=== PATIENT | female | born 1950 | race Caucasian/White ===

== ENCOUNTER → 2017-12-14 11:08 | Outpatient (CLI) | payer MEDICARE, SELFPAY ==
--- NOTE | 2017-12-14 11:12 | XR_ITS ---
XR ankle RT min 3V HISTORY: ITS.REASON: Right ankle pain ORDERING PHYSICIAN: SHARMIN Santacruz PATIENT AGE: 67 years COMPARISON: 09/18/2015 FINDINGS: There are osteoarthritic changes of the ankle joint with decrease in the joint space anteriorly. There is mild anterior subluxation of the talus. Bony hypertrophic changes are present at the medial malleolus and the lateral malleolus region. Small calcaneal spur. IMPRESSION: Osteoarthritic changes of the ankle joint as described above
== END ==
PROVIDERS: PCP Physician Assistant; Visit Provider Physician Assistant
DX: M25.571 Pain in right ankle and joints of right foot (principal)
CPT/HCPCS: 73610

== ENCOUNTER → 2020-04-09 12:37 | Outpatient (CLI) | payer MEDICARE, MEDICAID, SELFPAY ==
[2020-04-09 14:31] LABS: Coronavirus 19 IgG Antibody Negative (Negative); Coronavirus 19 IgM Antibody Negative (Negative)
== END ==
PROVIDERS: Visit Provider Surgery
DX: Z03.818 Encounter for observation for suspected exposure to other biological agents ruled out (principal)
CPT/HCPCS: 36415; 86328

== ENCOUNTER 2020-04-10 06:20 | Day surgery (SDC) | payer MEDICARE, MEDICAID, SELFPAY ==
[2020-04-08 11:04] VITALS: BMI 34.6
[2020-04-10 06:53] VITALS: BP 140/83; PULSE 72; RESP 18; TEMP 36.6; O2SAT 95
[2020-04-10 07:52] VITALS: BP 137/73; PULSE 67; RESP 18; TEMP 37.1; O2SAT 96
--- NOTE | 2020-04-10 07:59 | HMH.OPNOTE ---
Date of procedure: 04/10/20 Pre-op Diagnosis:: Neoplasm of uncertain behavior (2 cm)?left upper back Post-op Diagnosis:: Same Procedure performed:: Excision of 2 cm skin lesion from left upper back Surgeon:: Mello Gore MD Anesthesia: local Estimated blood loss (mL): 10 Operative findings:: Skin lesion was excised with 1 mm margin Lesion margins were marked with Prolene suture for identification (short superior/long lateral) Operative note:: After informed consent was obtained the patient was taken to the procedure room and maintained in a seated position. Her left upper back was prepped and draped in a sterile fashion. After infiltration local anesthetic an elliptical incision was made around the lesion. The deep subcutaneous tissue was dissected with scalpel and electrocautery. The lesion was excised in toto and passed off for pathologic evaluation after being marked for margin utilizing Prolene suture (short superior/long lateral). Electrocautery was utilized to achieve hemostasis and skin was then closed with interrupted 4-0 nylon. Dressings were applied and the patient was transferred to recovery. Condition: stable Disposition: no change Specimens:: Left upper back skin lesion Complications:: No immediate
[2020-04-10 08:02] VITALS: BP 137/73; PULSE 67; RESP 18; TEMP 37.2; O2SAT 96
== END 2020-04-10 08:02 | disposition home or self-care (01) ==
LOC: OUTP 06:23
PROVIDERS: PCP Physician Assistant; Visit Provider Surgery
PROC: (CPT 11106; principal; 2020-04-10 07:30)
DX: L82.1 Other seborrheic keratosis
CPT/HCPCS: 11106; 88305

== ENCOUNTER → 2020-08-18 18:20 | Outpatient (CLI) | payer MEDICARE, MEDICAID, SELFPAY ==
[2020-08-18 19:03] LABS: Basophils % 0.5 % (0.1-2.0); Eosinophils # 0.1 K/mm3 (0.0-0.4); Eosinophils % 1.3 % (0.1-12.0); Hematocrit 45.9 % (37.0-47.0); Hemoglobin 14.8 g/dL (12.2-16.2); Lymphocytes # 2.1 K/mm3 (0.7-4.5); Lymphocytes % 24.6 % (10-50); Mean Corpuscular HGB Conc 32.3 g/dL (31.8-35.4); Mean Corpuscular Hemoglobin 31.2 pg (27.0-31.2); Mean Corpuscular Volume 96.5 fl (81-99); Monocytes # 0.4 K/mm3 (0.1-1.0); Monocytes % 4.6 % (1.7-9.3); Neutrophils # 5.8 K/mm3 (1.8-7.8); Platelet Count 340 K/mm3 (142-424); Red Blood Count 4.76 M/mm3 (4.20-5.40); Red Cell Distribution Width 14.4 % (11.5-17.5); White Blood Count 8.3 K/mm3 (4.8-10.8)
[2020-08-18 19:09] LABS: Alanine Aminotransferase 27 U/L (12-78); Albumin Level 4.5 g/dl (3.5-5.0); Albumin/Globulin Ratio 1.3 (1.1-1.8); Alkaline Phosphatase 106 U/L (38-126); Anion Gap 14.9 mEq/L (5-15); Aspartate Amino Transferase 36 U/L (14-36); Bilirubin,Total 0.5 mg/dl (0.2-1.3); Blood Urea Nitrogen 17 mg/dl (7-17); Calcium 9.9 mg/dl (8.4-10.2); Carbon Dioxide 26 mmol/L (22.0-30.0); Chloride 101 mmol/L (98-107); Chol/HDL Ratio 5.5 (1-3.5); Cholesterol 294 mg/dl (140-200); Estimated Glomerular Filt Rate 71 ml/min (>60); GFR (African American) 86 ML/MIN (>60); Globulin 3.5 g/dL (1.3-3.2); Glucose 164 mg/dl (74-100); HDL Cholesterol 53 mg/dl (40-60); Potassium 3.9 mmoL/L (3.5-5.1); Sodium 138 mmol/L (136-145); Triglycerides 284 mg/dl (30-150); VLDL Cholesterol 57 mg/dL (0-40)
[2020-08-18 19:21] LABS: Direct LDL Cholesterol 191.62 mg/dL (100-129)
[2020-08-18 19:27] LABS: T4 (Thyroxine) 7.4 ug/dl (5.53-11.0)
[2020-08-18 19:40] LABS: Thyroid Stimulating Hormone 3.13 uIU/mL (0.465-4.68)
[2020-08-18 19:58] LABS: Vitamin B12 366 pg/mL (239-931)
== END ==
PROVIDERS: Visit Provider Physician Assistant
DX: R53.83 Other fatigue (principal); E78.00 Pure hypercholesterolemia, unspecified; E55.9 Vitamin D deficiency, unspecified; R32 Unspecified urinary incontinence
CPT/HCPCS: 80053; 80061; 82306; 82607; 84436; 84443; 85025

== ENCOUNTER → 2020-09-10 13:08 | Outpatient (CLI) | payer MEDICARE, MEDICAID, SELFPAY ==
--- NOTE | 2020-09-10 13:09 | XR_ITS ---
PROCEDURE: XR DEXA AXIAL SKELETON CLINICAL HISTORY: Osteoporosis screening COMPARISON: No exams were available for comparison FINDINGS: The right hip BMD is 0.624 with a T-score of -2.0. The left hip BMD is with a T-score of . The lumbar spine BMD is with a T-score of . IMPRESSION: Based on these results a follow-up exam is recommended in year. Dictated by: Yousif Monzon MD 09/10/2020 15:14 Yousif Monzon MD in [place] 09/10/2020 17:39
== END ==
PROVIDERS: PCP Physician Assistant; Visit Provider Physician Assistant
DX: Z13.820 Encounter for screening for osteoporosis (principal); Z78.0 Asymptomatic menopausal state
CPT/HCPCS: 77080

== ENCOUNTER → 2021-12-10 13:10 | Outpatient (CLI) | payer MEDICARE, MEDICAID, SELFPAY ==
--- NOTE | 2021-12-10 13:15 | XR_ITS ---
FINAL REPORT CLINICAL HISTORY: knee pain FINDINGS: RIGHT KNEE Three views were obtained. There is no acute fracture or dislocation. There is moderate degenerative change, worse in the medial and patellofemoral compartments. No soft tissue abnormality is identified. IMPRESSION: Degenerative changes as above. Reviewed, Interpreted and Dictated by Tejinder Barksdale III, MD Transcribed by Aida Garcia Authenticated by Tejinder Barksdale III, MD on 12/10/2021 03:48:30 PM [facility]
--- NOTE | 2021-12-10 13:15 | XR_ITS ---
FINAL REPORT CLINICAL HISTORY: knee pain FINDINGS: LEFT KNEE Three views were obtained. There is no acute fracture or dislocation. There are moderate and severe degenerative changes, worse in the medial compartment. There is a small joint effusion. No soft tissue abnormality is identified. IMPRESSION: Degenerative changes as above. Small joint effusion. Reviewed, Interpreted and Dictated by Tejinder Barksdale III, MD Transcribed by Aida Garcia Authenticated by Tejinder Barksdale III, MD on 12/10/2021 03:48:31 PM [facility]
== END ==
PROVIDERS: PCP Physician Assistant; Visit Provider Orthopaedic Surgery
DX: M25.561 Pain in right knee (principal); M25.562 Pain in left knee
CPT/HCPCS: 73564

== ENCOUNTER → 2022-10-11 23:31 | Outpatient (CLI) | payer MEDICARE, MEDICAID, SELFPAY ==
[2022-10-11 19:18] LABS: Basophils # 0.1 K/mm3 (0-0.2); Basophils % 0.8 % (0.1-2.0); Eosinophils # 0.1 K/mm3 (0.0-0.4); Eosinophils % 1.3 % (0.1-12.0); Hematocrit 47.6 % (37.0-47.0); Hemoglobin 14.9 g/dL (12.2-16.2); Lymphocytes # 2.5 K/mm3 (0.7-4.5); Lymphocytes % 23.7 % (10-50); Mean Corpuscular HGB Conc 31.2 g/dL (31.8-35.4); Mean Corpuscular Hemoglobin 30.6 pg (27.0-31.2); Mean Corpuscular Volume 97.8 fl (81-99); Monocytes # 0.5 K/mm3 (0.1-1.0); Monocytes % 4.9 % (1.7-9.3); Neutrophils # 7.4 K/mm3 (1.8-7.8); Neutrophils % 69.3 % (37.0-80.0); Platelet Count 414 K/mm3 (142-424); Red Blood Count 4.87 M/mm3 (4.20-5.40); Red Cell Distribution Width 13.6 % (11.5-17.5); White Blood Count 10.7 K/mm3 (4.8-10.8)
[2022-10-11 19:25] LABS: Alanine Aminotransferase 21 U/L (12-78); Albumin Level 4.3 g/dl (3.5-5.0); Albumin/Globulin Ratio 1.5 (1.1-1.8); Alkaline Phosphatase 86 U/L (38-126); Anion Gap 8.4 mEq/L (5-15); Aspartate Amino Transferase 28 U/L (14-36); Bilirubin,Total 0.7 mg/dl (0.2-1.3); Blood Urea Nitrogen 12 mg/dl (7-17); Calcium 9.1 mg/dl (8.4-10.2); Carbon Dioxide 28 mmol/L (22.0-30.0); Chloride 106 mmol/L (98-107); Chol/HDL Ratio 6.1 (1-3.5); Cholesterol 287 mg/dl (140-200); Estimated Glomerular Filt Rate 70 ml/min (>60); GFR (African American) 85 ML/MIN (>60); Globulin 2.9 g/dL (1.3-3.2); Glucose 88 mg/dl (74-100); HDL Cholesterol 47 mg/dl (40-60); Potassium 4.4 mmoL/L (3.5-5.1); Sodium 138 mmol/L (136-145); Total Protein,Serum 7.2 g/dl (6.3-8.2); Triglycerides 240 mg/dl (30-150); VLDL Cholesterol 48 mg/dL (0-40)
[2022-10-11 19:36] LABS: Direct LDL Cholesterol 174.57 mg/dL (100-129)
[2022-10-11 19:40] LABS: 25-OH Vitamin D, Total 14.4 ng/mL (30-100)
[2022-10-11 19:55] LABS: Thyroid Stimulating Hormone 2.96 uIU/mL (0.465-4.68)
== END ==
PROVIDERS: PCP Physician Assistant; Visit Provider Physician Assistant
DX: R19.8 Other specified symptoms and signs involving the digestive system and abdomen; E55.9 Vitamin D deficiency, unspecified; R10.9 Unspecified abdominal pain; N95.0 Postmenopausal bleeding; E66.9 Obesity, unspecified; Z68.36 Body mass index [BMI] 36.0-36.9, adult
CPT/HCPCS: 80053; 80061; 82306; 84443; 85025; 87086

== ENCOUNTER → 2022-11-10 10:18 | Outpatient (CLI) | payer MEDICARE, MEDICAID, SELFPAY ==
--- NOTE | 2022-11-10 10:18 | US_ITS ---
FINAL REPORT CLINICAL HISTORY: postmenopausal bleeding FINDINGS: Transvaginal sonographic images of the pelvis were obtained. The uterus measures 6.1 x 5.6 x 4.4 cm. The uterus is difficult to evaluate due to shadowing from fibroids. Individual uterine fibroids measure up to 2.9 cm in greatest dimension. The endometrium is not visualized due to shadowing from uterine fibroids. There are some echogenic shadowing foci consistent with calcifications. The right ovary measures 1.6 cm in length and left ovary measures 1.3 cm in length. Normal blood flow seen to the ovaries. Small follicles are present. There is no evidence of free fluid. IMPRESSION: Fibroid uterine with individual fibroids measuring up to 2.9 cm in greatest dimension. Reviewed, Interpreted and Dictated by Ortiz Karimi MD Transcribed by Celina Moscoso Authenticated and [facility]
== END ==
LOC: RAD 10:18
PROVIDERS: PCP Physician Assistant; Visit Provider Physician Assistant
DX: N95.0 Postmenopausal bleeding (principal)
CPT/HCPCS: 76830

== ENCOUNTER → 2022-12-01 15:17 | Outpatient (CLI) | payer MEDICARE, MEDICAID, SELFPAY ==
[2022-12-01 17:17] LABS: Basophils # 0.1 K/mm3 (0-0.2); Basophils % 0.6 % (0.1-2.0); Eosinophils # 0.1 K/mm3 (0.0-0.4); Eosinophils % 1.3 % (0.1-12.0); Hematocrit 48.2 % (37.0-47.0); Hemoglobin 15.2 g/dL (12.2-16.2); Lymphocytes # 2.7 K/mm3 (0.7-4.5); Lymphocytes % 25.1 % (10-50); Mean Corpuscular HGB Conc 31.6 g/dL (31.8-35.4); Mean Corpuscular Hemoglobin 30.6 pg (27.0-31.2); Mean Corpuscular Volume 96.9 fl (81-99); Monocytes # 0.5 K/mm3 (0.1-1.0); Neutrophils # 7.3 K/mm3 (1.8-7.8); Platelet Count 408 K/mm3 (142-424); Red Blood Count 4.97 M/mm3 (4.20-5.40); White Blood Count 10.8 K/mm3 (4.8-10.8)
[2022-12-01 19:17] LABS: Alanine Aminotransferase 20 U/L (12-78); Albumin Level 4.6 g/dl (3.5-5.0); Albumin/Globulin Ratio 1.5 (1.1-1.8); Alkaline Phosphatase 106 U/L (38-126); Anion Gap 11.5 mEq/L (5-15); Aspartate Amino Transferase 28 U/L (14-36); Bilirubin,Total 0.8 mg/dl (0.2-1.3); Blood Urea Nitrogen 11 mg/dl (7-17); Calcium 9.1 mg/dl (8.4-10.2); Carbon Dioxide 26 mmol/L (22.0-30.0); Chloride 102 mmol/L (98-107); Estimated Glomerular Filt Rate 70 ml/min (>60); GFR (African American) 85 ML/MIN (>60); Globulin 3.1 g/dL (1.3-3.2); Glucose 87 mg/dl (74-100); Potassium 4.5 mmoL/L (3.5-5.1); Sodium 135 mmol/L (136-145); Total Protein,Serum 7.7 g/dl (6.3-8.2)
== END ==
PROVIDERS: PCP Physician Assistant; Visit Provider Obstetrics & Gynecology
DX: N95.0 Postmenopausal bleeding (principal)
CPT/HCPCS: 36415; 80053; 85025

== ENCOUNTER 2022-12-08 06:13 | Day surgery (SDC) | payer MEDICARE, MEDICAID, SELFPAY ==
[2022-12-06 09:38] VITALS: BMI 37.3
[2022-12-08] VITALS (7 sets, daily range): BP systolic 125–135; BP diastolic 73–91; PULSE 62–125; RESP 16–18; TEMP 36.2–43; O2SAT 93–96
--- NOTE | 2022-12-08 07:46 | EXP.ANES.CKL ---
[facility] Disclaimer: The information contained in this section may have been updated after the patient was seen, as this information can be updated by other users. Medical History Abdominal pain Ankle pain Bilateral knee pain Depression Knee pain, bilateral Obesity (BMI 30-39.9) Postmenopausal bleeding Urinary incontinence Uterine fibroid Surgical History H/O tubal ligation Family History Other Family history of cancer Family history of diabetes mellitus type II Social History (Updated 12/08/22 @ 06:46 by Loraine Stewart RN) Smoking Status: Never smoker alcohol intake: never substance use type: denies use current occupational status: retired Travel in the last 8 weeks: None household members: family housing: house lives independently: Yes marital status: single education level: college current occupational exposures/hazards: No caffeine: Yes special marzean needs: No agree to transfusion: No do you feel safe at home: Yes victim of physical abuse: No victim of emotional abuse: No victim of sexual abuse: No would you like helpful sources: No [facility] Anesthesia Checklist Patient Identification Patient Identification: Arm Band Structural Data Admitted From: Home Planned Operative Procedure/s: Hysteroscopy, D&C, Myosure Ablation Consent for Planned Operative Procedure(s) Verified: Yes Verified Documents: Surgical Consent and History and Physical NPO Status Verified Time NPO: 00:00 Additional verifications Anesthesia Reactions: No Hx Blood Transfusions: No Blood Transfusion Reaction: No Airway Assessment C-Spine Mobility Assessed: Yes TMJ Mobility Assessed: Yes Neurological Assessment Level of Consciousness: Awake and Alert Anesthesia Plan Anesthesia Risk discussed: Yes ASA Class: II Anesthesia Type: MAC
--- NOTE | 2022-12-08 08:03 | P.OP_ITS ---
Date of procedure: 12/08/22 Pre-op Diagnosis:: 1. Postmenopausal bleeding 2. Uterine fibroids Post-op Diagnosis:: 1. Postmenopausal bleeding 2. Uterine fibroids Procedure performed:: Hysteroscopy, dilation and curettage Surgeon:: Caitlin Dillon DO Pulverizer Feeder(s):: N/a PARTS ROOM CLERK:: Jamar Machado Anesthesia: MAC Estimated blood loss (mL): 0 Clinical Note:: Mrs Mattie Caceres is a very pleasant 72 yo female who presents to [facility] for scheduled procedure. She complains of postmenopausal bleeding. She states she started having an occasional smear of pink with wiping a few weeks ago. It has progressed to daily and she has to wear a liner. Small amount of bleeding this morning was red. No further bleeding this afternoon. Denies pain. Pelvic ultrasound demonstrated?uterus measuring 6.1 x 5.6 x 4.4 cm.? The uterus is difficult to evaluate due to shadowing from fibroids.? Individual uterine fibroids measure up to 2.9 cm in greatest dimension.? The endometrium is not visualized due to shadowing from uterine fibroids. There are some echogenic shadowing foci consistent with calcifications.? The right ovary measures 1.6 cm in length and left ovary measures 1.3 cm in length. Normal blood flow seen to the ovaries. Small follicles are present. There is no evidence of free fluid. Operative findings:: 1. On bimanual exam, uterus normal size and shape, midline. No adnexal masses palpated 2. On hysteroscopic exam, bilateral tubal ostia easily visualized. Atrophic appearing endometrial tissue noted. No masses or polyps identified. Operative note:: Risks, benefits and alternatives were discussed with the patient. Risks include but are not limited to bleeding, infection, uterine perforation and VTE. Patient voiced understanding and agreed to proceed. She was wheeled back to the operating room and placed under MAC without difficulty. She was placed in dorsal lithotomy position and prepped and draped in the normal sterile fashion. Straight catheter was used to drain the bladder. A bimanual exam was performed. A weighted Auvard was placed in the vaginal vault. Single tooth tenaculum was placed on anterior lip of the cervix. Uterus sounded to 8. Sequential Rancho dilators were used to dilate the cervical os. Hysteroscope was tested inserted through the cervix without difficulty. Endometrial cavity was evaluated. See findings above. Pictures were taken. Hysteroscope was removed. Medium size sharp curette was inserted through the cervix into the uterine cavity and endometrium was curetted with a systematic back and forth movement in a 360 degree manner. Endometrial curettings will be sent to pathology for review. Instruments were removed from the vagina. Tenaculum site was noted to oozing. 2-0 Chromic suture was used to suture ligate the bleeding. Hemostasis was noted. Patient was awaken from anesthesia without difficulty. She was transported to recovery room in stable condition. Patient will be discharged home when awake and ambulating. She was given postop instructions as well as instructions to follow-up in the office in 2 weeks at which time pathology will be reviewed. Condition: stable Disposition: same day Specimens:: Endometrial curettings Complications:: None
== END 2022-12-08 08:45 | disposition home or self-care (01) ==
PROVIDERS: PCP Physician Assistant; Visit Provider Obstetrics & Gynecology
DX: N95.0 Postmenopausal bleeding (principal); D25.9 Leiomyoma of uterus, unspecified
CPT/HCPCS: 58558; 88305

== ENCOUNTER → 2022-12-21 15:26 | Outpatient (CLI) | payer MEDICARE, MEDICAID, SELFPAY ==
--- NOTE | 2022-12-21 15:30 | XR_ITS ---
FINAL REPORT CLINICAL HISTORY: left knee pain COMPARISON: 12/10/2021 FINDINGS: Left knee Three views were obtained. There is no acute fracture or dislocation. There is marked medial compartment joint space narrowing. There is subchondral sclerosis. There is mild lateral compartment joint space narrowing. Moderate osteophyte formation is seen along the undersurface of the patella. There is a small joint effusion. No soft tissue abnormality is identified. IMPRESSION: Advanced hypertrophic changes of osteoarthritis. Reviewed, Interpreted and Dictated by Ortiz Karimi MD Transcribed by Aida Garcia Authenticated and [facility]
--- NOTE | 2022-12-21 15:30 | XR_ITS ---
FINAL REPORT CLINICAL HISTORY: right knee pain COMPARISON: 12/10/2021 FINDINGS: Right knee Three views were obtained. There is no acute fracture or dislocation. There is moderate to advanced medial compartment joint space narrowing. There is moderate narrowing of the lateral articular facet of the patellofemoral joint. There are osteophytes along the undersurface of the patella No soft tissue abnormality is identified. IMPRESSION: Moderate to advanced changes of osteoarthritis. Reviewed, Interpreted and Dictated by Ortiz Karimi MD Transcribed by Aida Garcia Authenticated and [facility]
== END ==
LOC: RAD 15:27
PROVIDERS: PCP Physician Assistant; Visit Provider Orthopaedic Surgery
DX: M25.561 Pain in right knee (principal); M25.562 Pain in left knee
CPT/HCPCS: 73562

== ENCOUNTER → 2023-04-13 15:56 | Outpatient (CLI) | payer MEDICARE, MEDICAID, SELFPAY ==
[2023-04-13 13:47] LABS: Basophils # 0.1 K/mm3 (0-0.2); Basophils % 0.7 % (0.1-2.0); Eosinophils # 0.1 K/mm3 (0.0-0.4); Eosinophils % 1.3 % (0.1-12.0); Hematocrit 47.1 % (37.0-47.0); Hemoglobin 15.2 g/dL (12.2-16.2); Lymphocytes % 19.4 % (10-50); Mean Corpuscular HGB Conc 32.3 g/dL (31.8-35.4); Mean Corpuscular Hemoglobin 31.4 pg (27.0-31.2); Mean Corpuscular Volume 97.3 fl (81-99); Mean Platelet Volume 9.4 fl (7.4-10.4); Monocytes # 0.6 K/mm3 (0.1-1.0); Monocytes % 5.9 % (1.7-9.3); Neutrophils # 7.3 K/mm3 (1.8-7.8); Neutrophils % 72.6 % (37.0-80.0); Platelet Count 365 K/mm3 (142-424); Red Blood Count 4.84 M/mm3 (4.20-5.40); Red Cell Distribution Width 13.7 % (11.5-17.5); White Blood Count 10.1 K/mm3 (4.8-10.8)
[2023-04-13 15:20] LABS: Alanine Aminotransferase 22 U/L (12-78); Albumin Level 4.2 g/dl (3.5-5.0); Albumin/Globulin Ratio 1.4 (1.1-1.8); Alkaline Phosphatase 112 U/L (38-126); Anion Gap 14.4 mEq/L (5-15); Aspartate Amino Transferase 27 U/L (14-36); Bilirubin,Total 0.7 mg/dl (0.2-1.3); Blood Urea Nitrogen 18 mg/dl (7-17); Calcium 9.3 mg/dl (8.4-10.2); Carbon Dioxide 27 mmol/L (22.0-30.0); Chloride 105 mmol/L (98-107); Chol/HDL Ratio 5.1 (1-3.5); Cholesterol 297 mg/dl (140-200); Estimated Glomerular Filt Rate 70 ml/min (>60); GFR (African American) 85 ML/MIN (>60); Globulin 3.1 g/dL (1.3-3.2); Glucose 99 mg/dl (74-100); HDL Cholesterol 58 mg/dl (40-60); Potassium 4.4 mmoL/L (3.5-5.1); Sodium 142 mmol/L (136-145); Total Protein,Serum 7.3 g/dl (6.3-8.2); Triglycerides 189 mg/dl (30-150); VLDL Cholesterol 38 mg/dL (0-40)
[2023-04-13 15:33] LABS: Direct LDL Cholesterol 172.75 mg/dL (100-129)
[2023-04-13 15:51] LABS: Thyroid Stimulating Hormone 3.19 uIU/mL (0.465-4.68)
[2023-04-13 16:10] LABS: Vitamin B12 287 pg/mL (239-931)
[2023-04-13 16:17] LABS: 25-OH Vitamin D, Total 25.9 ng/mL (30-100)
[2023-04-13 16:54] LABS: Iron 117 ug/dL (37-170)
[2023-04-13 17:05] LABS: Total Iron Binding Capacity 319 ug/dL (265-497)
[2023-04-13 17:31] LABS: Ferritin 117 ng/ml (11.1-264)
== END ==
PROVIDERS: PCP Physician Assistant; Visit Provider Physician Assistant
DX: R45.83 Excessive crying of child, adolescent or adult (principal); R53.83 Other fatigue; M25.571 Pain in right ankle and joints of right foot; E66.9 Obesity, unspecified; E55.9 Vitamin D deficiency, unspecified; Z68.37 Body mass index [BMI] 37.0-37.9, adult
CPT/HCPCS: 80053; 80061; 82306; 82607; 82728; 83540; 83550; 84436; 84443; 85025

== ENCOUNTER → 2023-04-17 13:18 | Outpatient (CLI) | payer MEDICARE, MEDICAID, SELFPAY ==
[2023-04-19 08:58] LABS: FSH 52.2 mIU/mL (.); LH 22.1 mIU/mL (.); Progesterone 0.1 ng/mL (.); Testosterone,Total <3 ng/dL (3-67); Triiodothyronine (T3) Total 78 ng/dL (71-180)
[2023-04-21 23:09] LABS: Estrogen 99 pg/mL (40-244)
[2023-04-26 08:19] LABS: Anti Mullerian Hormone (AMH) <0.015
== END ==
PROVIDERS: PCP Physician Assistant; Visit Provider Physician Assistant
DX: R45.83 Excessive crying of child, adolescent or adult (principal); E55.9 Vitamin D deficiency, unspecified; R53.83 Other fatigue; M25.571 Pain in right ankle and joints of right foot; E66.9 Obesity, unspecified; Z68.37 Body mass index [BMI] 37.0-37.9, adult
CPT/HCPCS: 36415; 82397; 82672; 83001; 83002; 84144; 84403; 84480